=== PATIENT | female | born 2005 | race Caucasian/White ===

== ENCOUNTER 2023-01-13 10:50 | Emergency (ER) | payer BC ==
[2023-01-13 11:13] LABS: APPEARANCE,URINE SLT CLOUDY; BILIRUBIN,URINE NEGATIVE (NEGATIVE); COLOR,URINE YELLOW; GLUCOSE,URINE NEGATIVE (NEGATIVE); KETONES,URINE NEGATIVE (NEGATIVE); LEUKOCYTE ESTERASE,URINE LARGE (NEGATIVE); NITRITE,URINE NEGATIVE (NEGATIVE); OCCULT BLOOD,URINE SMALL (NEGATIVE); PROTEIN,URINE NEGATIVE (NEGATIVE); UROBILINOGEN,URINE 0.2 EU/dL (<2.0)
[2023-01-13 11:26] LABS: BACTERIA,URINE 1+ (NEGATIVE); EPITHELIAL CELLS,URINE RARE (NONE-FEW); MUCUS,URINE LIGHT (NONE-MOD); RBC,URINE NONE SEEN (0-2/HPF); WBC,URINE 18-22 (0-5/HPF)
[2023-01-13] MEDS ORDERED: Cefdinir 300 MG Cap PO ONE (11:58)
[2023-01-13] MEDS ORDERED: Phenazopyridine 200 MG Tab PO ONE (11:58)
== END 2023-01-13 12:30 | disposition home or self-care (01) ==
LOC: MW.ED 10:50
DX: N39.0 Urinary tract infection, site not specified (principal)
CPT/HCPCS: 81001; 81025; 87086; 99283; A9270

== ENCOUNTER 2024-01-17 18:51 | Inpatient (IN) | payer BC ==
[2024-01-17] MEDS ORDERED: Terbutaline 1 MG/ML SDV SUBCUT PRN (22:55)
[2024-01-17] MEDS ORDERED: Oxytocin/0.9 % Sodium Chloride 30 UNIT/500 ML BAG IV SCH (23:00)
[2024-01-17 23:01] LABS: HEMATOCRIT 37.1 % (37.0-47.0); MEAN CORPUSCULAR HEMOGLOBIN 30.4 pg (28.0-32.0); MEAN CORPUSCULAR VOLUME 86.9 fL (83.0-99.0); MEAN PLATELET VOLUME 11.5 fL (9.4-12.3); PLATELET COUNT,PLT 218 K/uL (150-400); RED BLOOD CELL COUNT 4.27 M/uL (4.10-5.30)
[2024-01-17] MEDS: Butorphanol 2 MG/ML SDV IVPUSH ONE (23:13)
[2024-01-17] MEDS: Ropivacaine HCl/PF 200 ML ONE (23:25)
[2024-01-17] MEDS ORDERED: dexmedeTOMIDine HCl 200 MCG/2 ML SDV ONE (23:41)
[2024-01-17] MEDS ORDERED: Bupivacaine 0.5% 30 ML SDV ONE (23:42)
[2024-01-17] MEDS ORDERED: Phenylephrine HCl In 0.9% NaCl 1 MG/10 ML Syringe ONE (23:42)
[2024-01-17] MEDS ORDERED: dexmedeTOMIDine HCl 200 MCG/2 ML SDV EPIDUR SCH (23:45)
[2024-01-17] MEDS ORDERED: Ropivacaine HCl/PF 400 MG in Premix Bag 1 BAG EPIDUR SCH (23:45)
[2024-01-17] MEDS ORDERED: ePHEDrine 50 MG/ML SDV IVPUSH PRN ×2 (23:47)
[2024-01-17] MEDS ORDERED: Phenylephrine HCl In 0.9% NaCl 1 MG/10 ML Syringe IVPUSH PRN (23:47)
[2024-01-18] MEDS: Lactated Ringers 1,000 ML IV SCH (03:56)
[2024-01-18] MEDS: Oxytocin/0.9 % Sodium Chloride 30 UNIT/500 ML BAG IV SCH (06:55)
[2024-01-18] MEDS ORDERED: Docusate Sodium 100 MG Cap PO PRN (10:34)
[2024-01-18] MEDS: Ibuprofen 800 MG Tab PO PRN (11:44)
[2024-01-18] MEDS: Acetaminophen 500 MG Tab PO PRN (11:45)
[2024-01-18] MEDS: Witch Hazel Medicated Pads 40/Jar TOP PRN (11:50)
[2024-01-18] MEDS: Benzocaine/Menthol 20%-0.5% Spray 78 GM Cannister TOP PRN (11:52)
[2024-01-18] MEDS: Lanolin 100% Cream 7 GM Tube TOP PRN (11:52)
[2024-01-19 05:35] LABS: HEMATOCRIT 34.1 % (37.0-47.0); HEMOGLOBIN 11.6 g/dL (12.0-16.0)
== END 2024-01-19 13:28 | disposition home or self-care (01) | DRG 560 ==
LOC: MW.OB 18:51 → MW.OBCHECK 18:51 → MW.OB 01-18 06:11 → OBSVTOIN 01-18 06:55 → MW.OB 01-18 12:03
PROVIDERS: ADMIT Obstetrics & Gynecology; ATTEND Obstetrics & Gynecology
PROC: 10E0XZZ Delivery of Products of Conception, External Approach (ICD-10-PCS; principal; 2024-01-18)
PROC: 0KQM0ZZ Repair Perineum Muscle, Open Approach (ICD-10-PCS; 2024-01-18)
PROC: 3E0R3BZ Introduction of Anesthetic Agent into Spinal Canal, Percutaneous Approach (ICD-10-PCS; 2024-01-18)
PROC: 00HU33Z Insertion of Infusion Device into Spinal Canal, Percutaneous Approach (ICD-10-PCS; 2024-01-18)
DX: O99.284 Endocrine, nutritional and metabolic diseases complicating childbirth (principal); E03.9 Hypothyroidism, unspecified; Z3A.39 39 weeks gestation of pregnancy; Z37.0 Single live birth; O77.0 Labor and delivery complicated by meconium in amniotic fluid; O70.1 Second degree perineal laceration during delivery
CPT/HCPCS: 36415; 59025; 59409; 85014; 85018; 85027; 86850; 86900; 86901; A9270-GY; J0595; J0665; J2371; J2590; J2795; J3490; J7120

== ENCOUNTER 2024-11-21 18:10 | Emergency (ER) | payer BC ==
[2024-11-21 18:31] LABS: APPEARANCE,URINE SLT CLOUDY; BILIRUBIN,URINE NEGATIVE (NEGATIVE); COLOR,URINE YELLOW; GLUCOSE,URINE NEGATIVE (NEGATIVE); KETONES,URINE NEGATIVE (NEGATIVE); LEUKOCYTE ESTERASE,URINE LARGE (NEGATIVE); NITRITE,URINE NEGATIVE (NEGATIVE); OCCULT BLOOD,URINE LARGE (NEGATIVE); PH,URINE 6.5 (5.0-8.0); PROTEIN,URINE TRACE mg/dL (NEGATIVE); UROBILINOGEN,URINE 0.2 EU/dL (<2.0)
[2024-11-21 18:48] LABS: EPITHELIAL CELLS,URINE FEW (NONE-FEW); WBC,URINE 20-25 (0-5/HPF)
[2024-11-21 18:49] LABS: BACTERIA,URINE 1+ (NEGATIVE)
== END 2024-11-21 19:28 | disposition home or self-care (01) ==
LOC: MW.ED 18:10
DX: N39.0 Urinary tract infection, site not specified (principal); M54.50 Low back pain, unspecified; E03.9 Hypothyroidism, unspecified; Z79.890 Hormone replacement therapy; Z79.899 Other long term (current) drug therapy
CPT/HCPCS: 81001; 81025; 87086; 87088; 87186; 99283